=== PATIENT | female | born 1995 | race Caucasian/White ===

== ENCOUNTER 2017-11-19 06:57 | Emergency (ER) | payer MEDICAID ==
[~2017-11-19] VITALS: Ht 157.5 cm; Wt 46.0 kg
[2017-11-19 07:01] VITALS: BP 114/72
[2017-11-19 07:28] LABS: URINE HCG NEGATIVE (NEG)
[2017-11-19 07:29] LABS: CLARITY,URINE Cloudy (Clear); COLOR,URINE Yellow (Yellow); GLUCOSE, URINE Negative (Neg); KETONES,URINE Negative (Neg); LEUKOCYTE ESTERASE ,URINE Large (Neg); NITRITES, URINE Negative (Neg); OCCULT BLOOD,URINE Negative (Neg); PH,URINE 7.5 (4.8-8.0); PROTEIN,URINE Negative (Neg)
[2017-11-19 07:31] LABS: UA COLLECTION TYPE CLN CATCH MIDSTREAM
[2017-11-19 07:35] LABS: BACTERIA,URINE 3+ /HPF (Neg); MUCUS STRANDS MODERATE /LPF (Neg); RBC,URINE 0-2 /HPF (0-2); SQUAMOUS EPITHELIAL CELL,UR MANY /LPF (FEW); WBC,URINE TNTC /HPF (0-4); YEAST MANY /HPF (NEGATIVE)
[2017-11-19] MEDS ORDERED: azithromycin 250mg tablet PO ONE (07:50)
[2017-11-19] MEDS ORDERED: CefTRIAXone 250MG inj IM ONE (07:50)
[2017-11-19] MEDS ORDERED: CefTRIAXone 250MG IM Kit w/LIDOcaine IM ONE (08:10)
[2017-11-19] MEDS ORDERED: TERC45CR VG (08:55)
== END 2017-11-19 09:09 | disposition home or self-care (01) ==
LOC: ER 06:58
DX: B37.3 Candidiasis of vulva and vagina (principal); Z98.890 Other specified postprocedural states
CPT/HCPCS: 36415; 81001; 81025; 87210; 87491; 87591; 96372; 99284; J0696

== ENCOUNTER 2018-07-18 12:29 | Emergency (ER) | payer BC, MEDICAID ==
[~2018-07-18] VITALS: Ht 157.5 cm; Wt 49.9 kg
[~2018-07-18 12:29] MED LIST: TERC45CR VG
[2018-07-18] MEDS ORDERED: hydrocortisone sod succ/PF 100mg/2ml inj. IV STA (12:49)
[2018-07-18] MEDS ORDERED: normal saline 1000ML IV soln IVB ONE (12:50)
--- NOTE | 2018-07-18 12:50 | NUR ---
DR CHAVEZ MADE AWARE PT IS HERE AND SHARA CHARGE NURSE AWARE OF GETTING PT BACK SOON POSSIBLE.
[2018-07-18 13:43] LABS: BASOPHILS % (AUTO) 0.7 % (0-1); EOSINOPHILS % (AUTO) 0 % (0-6); HEMATOCRIT 39.6 % (35.0-45.0); HEMOGLOBIN 12.4 g/dl (12.0-16.0); LYMPHOCYTES # (AUTO) 2.3 X10'3 (1.1-4.8); LYMPHOCYTES % (AUTO) 52.2 % (21-51); MEAN CORPUSCULAR HEMOGLOBIN 21.8 PG (27.0-31.0); MEAN CORPUSCULAR HGB CONC 31.2 % (33.0-36.5); MEAN CORPUSCULAR VOLUME 69.8 FL (78-98); MEAN PLATELET VOLUME 8.3 FL (7.4-10.4); MONOCYTES # (AUTO) 0.5 X10'3 (0-0.9); MONOCYTES % (AUTO) 10.9 % (2-12); NEUTROPHILS # (AUTO) 1.6 X10'3 (1.8-7.7); NEUTROPHILS % (AUTO) 36.2 % (42-75); PLATELET COUNT 281 X10'3 (140-440); RED BLOOD COUNT 5.67 X10'6 (4.20-5.60); RED CELL DISTRIBUTION WIDTH 20.6 % (11.5-14.5); WHITE BLOOD COUNT 4.4 X10'3 (4.5-11.0)
[2018-07-18 14:03] LABS: ALANINE AMINOTRANSFERASE 20 U/L (12-78); ALBUMIN/GLOBULIN RATIO 1.2 (1.1-1.5); ALKALINE PHOSPHATASE 53 IU/L (46-116); ANION GAP 12 (8-16); ASPARTATE AMINO TRANSFERASE 34 U/L (10-37); BILIRUBIN,TOTAL 0.6 MG/DL (0.1-1.0); BLOOD UREA NITROGEN 12 MG/DL (7-18); BUN/CREATININE RATIO 13.2 (6.6-38.0); CALCIUM 9.3 MG/DL (8.5-10.1); CHLORIDE 99 MMOL/L (99-107); CREATININE 0.91 MG/DL (0.40-0.90); GLUCOSE 70 MG/DL (70-104); POTASSIUM 4.1 MMOL/L (3.5-5.1); SODIUM 136 MMOL/L (135-145); TOTAL PROTEIN 7.3 G/DL (6.4-8.2); eGFR 76 ML/MIN
[2018-07-18 14:10] LABS: ANISOCYTOSIS 3+; MICROCYTOSIS 2+; PLATELET ESTIMATE NORMAL
[2018-07-18] MEDS ORDERED: HYDR-3780 PO (14:23)
[2018-07-18] MEDS ORDERED: HYDR20TA23 PO (14:23)
[2018-07-18] MEDS ORDERED: ondansetron/PF 4mg/2ml inj IV ONE (14:25)
[2018-07-18 15:05] VITALS: BP 101/62
== END 2018-07-18 15:08 | disposition home or self-care (01) ==
LOC: ER 12:30
DX: E27.40 Unspecified adrenocortical insufficiency (principal); Z79.899 Other long term (current) drug therapy; Z90.89 Acquired absence of other organs; Z85.858 Personal history of malignant neoplasm of other endocrine glands
CPT/HCPCS: 36415; 80053; 85025; 93005; 96361; 96374; 96375; 99284; J1720; J2405; J7030; 99283